=== PATIENT | female | born 1960 | race Caucasian/White ===

== ENCOUNTER 2021-03-18 12:24 | Day surgery (SDC) | payer OTHER ==
[2021-03-14 15:49] VITALS: BMI 29.2
[2021-03-18 14:46] VITALS: PULSE 59; TEMP 97.5
[2021-03-18 16:05] VITALS: BP 122/71
== END 2021-03-18 15:45 | disposition home or self-care (01) ==
LOC: FASU 12:24
PROVIDERS: ATTEND Internal Medicine Gastroenterology
PROC: 0DBL8ZX Excision of Transverse Colon, Via Natural or Artificial Opening Endoscopic, Diagnostic (ICD-10-PCS; principal; 2021-03-18 14:22)
DX: D12.3 Benign neoplasm of transverse colon (principal); K92.1 Melena; K64.0 First degree hemorrhoids; K57.30 Diverticulosis of large intestine without perforation or abscess without bleeding
CPT/HCPCS: 88305-TC

== ENCOUNTER 2023-09-28 07:37 | Day surgery (SDC) | payer OTHER ==
[2023-09-21 11:40] VITALS: BMI 27.4
[2023-09-28] MEDS ORDERED: LIDOCAINE HCL/PF 2% SDV 5ML VIAL ONE (07:51)
[2023-09-28] MEDS ORDERED: PROPOFOL 160 ML ONE (07:51)
[2023-09-28 10:01] VITALS: RESP 20; TEMP 97.8
[2023-09-28 10:47] VITALS: BP 124/60; PULSE 64
== END 2023-09-28 10:35 | disposition home or self-care (01) ==
LOC: FASU-ENDO 07:37
PROVIDERS: ATTEND Internal Medicine Gastroenterology
PROC: 0DB68ZX Excision of Stomach, Via Natural or Artificial Opening Endoscopic, Diagnostic (ICD-10-PCS; 2023-09-28)
PROC: 0DB48ZX Excision of Esophagogastric Junction, Via Natural or Artificial Opening Endoscopic, Diagnostic (ICD-10-PCS; 2023-09-28)
PROC: 0DB98ZX Excision of Duodenum, Via Natural or Artificial Opening Endoscopic, Diagnostic (ICD-10-PCS; principal; 2023-09-28 09:10)
DX: K29.50 Unspecified chronic gastritis without bleeding (principal); K20.90 Esophagitis, unspecified without bleeding; R10.13 Epigastric pain
CPT/HCPCS: 88305-TC; 88342-TC